=== PATIENT | male | born 1940 | race Caucasian/White ===

== ENCOUNTER 2016-07-27 18:42 | Emergency (ER) | payer BC, MEDICARE ==
--- NOTE | ~2016-07-27 | CT4 ---
[facility]. [facility] A Service of [facility] & [facility] RADIOLOGY TEXT RESULTS PATIENT: CIRILO SOMERS LOCATION: SED : 41 UNIT #: [id number] AGE: [address]: Brittany Segura APRN SEX: M ORDER DR: [id number] [address] [address] [id number] E MR#: [id number] Acc #: [id number] NAME: CIRILO SOMERS. : 1940 SEX: M STUDY DATE/TIME: 07/27/2016 19:18 UNIT: SED ROOM: STUDY DESCRIPTION: CT Abd and Pelv Wo Cont Attending Physician: Brittany Segura A.P.R.N. Ordering Physician: Brittany Segura A.P.R.N. Primary Care Physician: Leeroy Arzola M.D. MEDICAL IMAGING REPORT This report is preliminary unless electronic signature is present. EXAM CT abdomen and pelvis without contrast HISTORY Right-sided flank pain, onset 15 minutes prior to admission in ER COMPARISON CT chest 03/11/2016 FINDINGS Axial images performed through the abdomen and pelvis without contrast. Multiplanar reconstructed were images reviewed at a workstation. This CT exam was performed with one or more of the following radiation dose reduction techniques: automatic exposure control, adjustment of mA and/or kV according to patient size, and iterative reconstruction. FINDINGS There is a calcified granuloma left lower lobe with some adjacent atelectasis or scarring. Liver, spleen, gallbladder, pancreas and adrenal glands unremarkable. There is moderate to severe bilateral hydronephrosis with a 8 mm right UPJ stone and a 7 mm left UVJ stone contributing to bilateral obstruction. Probable hyperdense renal cortical cyst on the left. GI tract remarkable for colonic diverticulosis. Pelvis: Bladder unremarkable. Prostate demonstrates multiple radiation seed implants. Degenerative disc changes noted at L2-3, L5-S1 with multilevel spinal and foraminal stenosis at multiple lumbar levels. IMPRESSION 1. Bilateral hydronephrosis with a 8 mm right UPJ stone and a 7 mm left UVJ stone. [facility] A Service of [facility] RADIOLOGY TEXT RESULTS PATIENT: CIRILO SOMERS LOCATION: [facility] : 41 UNIT #: [id number] AGE: [address]: Brittany Segura CULINARY SPECIALIST SEX: M ORDER DR: 2. 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 Dictated by... Gus Crane M.D. THIS IS AN ELECTRONICALLY VERIFIED REPORT Gus Crane M.D. at 07/28/2016 6:37 PM TARA/salvatore TD: 07/27/2016 23:08 JOB #: [id number] MEDICAL IMAGING REPORT Page 1 of 1
[~2016-07-27 18:42] MED LIST: COREG PO; LIPITOR PO; LISINOPRIL PO; PLAVIX PO
[2016-07-27 18:48] LABS: BASOPHIL# 0.1 X10e3 (0-0.3); BASOPHIL% 0.8 % (0-2.5); EOSINOPHIL# 0.5 X10e3 (0-0.7); EOSINOPHIL% 5.4 % (0.0-7.0); HEMATOCRIT 43.7 % (38.0-50.0); HEMOGLOBIN 14.6 gm/dL (13.0-16.0); LYMPHOCYTE# 0.8 X10e3 (1.0-3.5); LYMPHOCYTE% 9.1 % (17.0-45.0); MEAN CELL VOLUME 90.9 FL (83-96); MEAN CORPUSCULAR HEMOGLOBIN 30.5 PG (28-34); MEAN CORPUSCULAR HGB CONC 33.5 g/dL (30-36); MEAN PLATELET VOLUME 8.8 FL (6.5-11.5); MONOCYTE# 0.9 X10e3 (0-1.0); MONOCYTE% 10.2 % (3.0-12.0); NEUTROPHIL# 6.5 X10e3 (1.5-7.1); NEUTROPHIL% 74.5 % (40-75); PLATELET COUNT 131 X10e3 (140-420); RED BLOOD COUNT 4.81 X10e (3.90-5.60); RED CELL DISTRIBUTION WIDTH 13.6 % (11.0-15.5); WHITE BLOOD COUNT 8.7 X10e3 (4.0-10.5)
[2016-07-27 18:51] LABS: DIFF IND NO
[2016-07-27 19:08] LABS: ALBUMIN SERUM 4.3 g/dL (3.5-5.0); BILIRUBIN, DIRECT 0.1 mg/dL (0.0-0.2); BILIRUBIN,INDIRECT 0.5 mg/dL (0.0-0.9); BILIRUBIN,TOTAL 0.6 mg/dL (0.2-2.0); BUN/CREATININE RATIO 26.15; CALCIUM SERUM 9.4 mg/dL (8.4-10.2); CREATININE SERUM 1.3 mg/dL (0.6-1.4); GLOM FILT RATE Estimated 53.4 mL/min (>60); PROTEIN TOTAL SERUM 7.6 g/dL (6.0-8.3)
[2016-07-27 19:17] LABS: URINE SOURCE CLEAN CATCH
[2016-07-27 19:19] LABS: URINE BILIRUBIN NEG (NEG); URINE BLOOD 3+ (NEG); URINE COLOR YELLOW; URINE GLUCOSE NEG (NORM); URINE KETONE NEG (NEG); URINE NITRATE NEG (NEG); URINE PH 5.5 (5-8); URINE PROTEIN TRACE (NEG); URINE SPECIFIC GRAVITY 1.015 (1.003-1.035); URINE UROBILINOGEN 0.2 MG/DL (NORM)
[2016-07-27 19:26] LABS: URINE APPEARANCE HAZY
[2016-07-27 19:27] LABS: MICRO INDICATED? YES; URINE LEUKOCYTE ESTERASE 1+ (NEG)
[2016-07-27 19:29] LABS: URINE BACTERIA NEG (NEG); URINE MUCUS PRESENT; URINE RBC INNUM /[HPF] (0-2); URINE SQUAMOUS EPITHELIAL CELL OCCAS /[HPF]; URINE TRANSITIONAL EPI CELLS FEW /[HPF]
== END 2016-07-27 20:03 | disposition home or self-care (01) ==
LOC: SED 18:42
PROVIDERS: Nurse Practitioner
DX: N13.2 Hydronephrosis with renal and ureteral calculous obstruction (principal); I10 Essential (primary) hypertension; Z86.73 Personal history of transient ischemic attack (TIA), and cerebral infarction without residual deficits; Z79.899 Other long term (current) drug therapy
CPT/HCPCS: 36415; 74176; 80048; 80076; 81003; 83690; 85025; 96374; 96375; 99284; J2270; J2405

== ENCOUNTER → 2016-08-21 | Outpatient (CLI) | payer BC, MEDICARE ==
[~2016-08-21] MED LIST changes: +FLOMAX0.4 M1
--- NOTE | ~2016-08-21 | CR7 ---
[facility] A Service of [facility] RADIOLOGY TEXT RESULTS PATIENT: CIRILO SOMERS LOCATION: [facility] : 41 UNIT #: [id number] AGE: [address]: Johnathan Wilson MD SEX: M ORDER DR: [id number] [place] [address] [id number] O MR#: [id number] Acc #: [id number] NAME: CIRILO SOMERS : 1940 SEX: M STUDY DATE/TIME: 08/21/2016 10:41 UNIT: [facility] ROOM: STUDY DESCRIPTION: CR Abdomen Single AP View Attending Physician: Johnathan Wilson M.D. Referring Physician: Johnathan Wilson M.D. Ordering Physician: Johnathan Wilson M.D. Primary Care Physician: Leeroy Arzola M.D. MEDICAL IMAGING REPORT This report is preliminary unless electronic signature is present. EXAM Abdominal radiograph. INDICATION Renal calculus. Stent placement 3 weeks ago. PROCEDURE 2 supine views of the abdomen. COMPARISON CT from 07/27/2016. FINDINGS Bilateral double-J stents in place. There is a small calculus in the proximal to mid ureter that measures approximately 3 mm. There are a few small radiodensities measuring 2-3 mm along the distal course of the right stent. These could represent calculi or phleboliths. There are other scattered phleboliths in the pelvis. No other visible radiodense urinary system calculus. IMPRESSION Bilateral ureteral stents in place. There is a 3 mm calculus along the proximal to mid ureter. Small 2-3 mm phleboliths along the distal course of the right ureter versus pelvic phleboliths. Dictated by... Gian Rivas M.D. THIS IS AN ELECTRONICALLY VERIFIED REPORT Gian Rivas M.D. at 08/24/2016 7:05 AM [facility] A Service of [facility] RADIOLOGY TEXT RESULTS PATIENT: CIRILO SOMERS LOCATION: [facility] : 41 UNIT #: [id number] AGE: [address]: Johnathan Wilson MD SEX: M ORDER DR: IDANIA/zander TD: 08/21/2016 16:55 JOB #: [id number] MEDICAL IMAGING REPORT Page 1 of 1
== END | disposition home or self-care (01) ==
LOC: SRAD 09:57
DX: N20.0 Calculus of kidney (principal); N20.1 Calculus of ureter; Z96.0 Presence of urogenital implants
CPT/HCPCS: 74000

== ENCOUNTER 2016-08-24 17:18 | Emergency (ER) | payer BC ==
[~2016-08-24 17:18] MED LIST changes: -FLOMAX0.4 M1
[2016-08-24] MEDS ORDERED: FLOMAX0.4 M1 (17:23)
[2016-08-24 17:53] LABS: URINE SOURCE CLEAN CATCH
[2016-08-24 17:55] LABS: URINE APPEARANCE SL CLOUDY; URINE BILIRUBIN NEG (NEG); URINE BLOOD 3+ (NEG); URINE COLOR DK YELLOW; URINE GLUCOSE NEG (NORM); URINE KETONE NEG (NEG); URINE LEUKOCYTE ESTERASE TRACE (NEG); URINE NITRATE NEG (NEG); URINE PH 5.5 (5-8); URINE PROTEIN 2+ (NEG); URINE UROBILINOGEN 0.2 MG/DL (NORM)
[2016-08-24 17:57] LABS: MICRO INDICATED? YES
[2016-08-24 18:11] LABS: CULTURE INDICATED? YES; URINE BACTERIA 1+ (NEG); URINE RBC 100-200 /[HPF] (0-2)
== END 2016-08-24 19:42 | disposition home or self-care (01) ==
LOC: SED 17:18
PROVIDERS: Nurse Practitioner Family
DX: R33.9 Retention of urine, unspecified (principal); R30.0 Dysuria; I10 Essential (primary) hypertension; Z79.899 Other long term (current) drug therapy
CPT/HCPCS: 51702; 81003; 87086; 99284

== ENCOUNTER 2016-08-26 14:17 | Emergency (ER) | payer BC ==
[~2016-08-26 14:17] MED LIST changes: +FLOMAX0.4 M1
[2016-08-26 15:49] LABS: URINE SOURCE CLEAN CATCH
[2016-08-26 15:52] LABS: URINE APPEARANCE CLEAR; URINE BILIRUBIN NEG (NEG); URINE BLOOD 3+ (NEG); URINE COLOR YELLOW; URINE GLUCOSE NEG (NORM); URINE KETONE NEG (NEG); URINE LEUKOCYTE ESTERASE NEG (NEG); URINE NITRATE NEG (NEG); URINE PH 5.5 (5-8); URINE PROTEIN NEG (NEG); URINE SPECIFIC GRAVITY 1.015 (1.003-1.035); URINE UROBILINOGEN 0.2 MG/DL (NORM)
[2016-08-26 15:53] LABS: MICRO INDICATED? YES
[2016-08-26 15:56] LABS: URINE BACTERIA NEG (NEG)
[2016-08-26 15:57] LABS: CULTURE INDICATED? YES; URINE AMORPHOUS SEDIMENT AMORP URATES; URINE SQUAMOUS EPITHELIAL CELL FEW /[HPF]
== END 2016-08-26 16:34 | disposition home or self-care (01) ==
LOC: SED 14:17
PROVIDERS: Emergency Medicine
DX: R33.9 Retention of urine, unspecified (principal); Z90.49 Acquired absence of other specified parts of digestive tract
CPT/HCPCS: 51702; 81003; 87086; 99284

== ENCOUNTER 2016-08-30 01:38 | Emergency (ER) | payer BC ==
[2016-08-30 02:10] LABS: URINE SOURCE CLEAN CATCH
[2016-08-30 02:12] LABS: URINE APPEARANCE CLEAR; URINE BILIRUBIN NEG (NEG); URINE BLOOD 3+ (NEG); URINE COLOR YELLOW; URINE GLUCOSE NEG (NORM); URINE KETONE NEG (NEG); URINE LEUKOCYTE ESTERASE TRACE (NEG); URINE NITRATE NEG (NEG); URINE PROTEIN NEG (NEG); URINE UROBILINOGEN 0.2 MG/DL (NORM)
[2016-08-30 02:13] LABS: MICRO INDICATED? YES
[2016-08-30 02:16] LABS: CULTURE INDICATED? NO; URINE BACTERIA NEG (NEG); URINE MUCUS PRESENT; URINE RBC 50-100 /[HPF] (0-2); URINE SQUAMOUS EPITHELIAL CELL FEW /[HPF]; URINE WBC 0-2 /[HPF] (0-5)
== END 2016-08-30 02:46 | disposition home or self-care (01) ==
LOC: SED 01:38
PROVIDERS: Emergency Medicine
DX: R33.9 Retention of urine, unspecified (principal); R03.0 Elevated blood-pressure reading, without diagnosis of hypertension; Z87.442 Personal history of urinary calculi
CPT/HCPCS: 51702; 81003; 99284

== ENCOUNTER 2016-09-13 11:57 | Emergency (ER) | payer BC, MEDICARE ==
--- NOTE | ~2016-09-13 | CR72 ---
[facility] A Service of [facility] RADIOLOGY TEXT RESULTS PATIENT: CIRILO SOMERS LOCATION: SED : 41 UNIT #: [id number] AGE: [address]: Wendi Lawrence MD SEX: M ORDER DR: [id number] [place] [address] [id number] E MR#: [id number] Acc #: [id number] NAME: CIRILO SOMERS : 1940 SEX: M STUDY DATE/TIME: 09/13/2016 12:56 UNIT: SED ROOM: STUDY DESCRIPTION: CR Chest Single View Portable Attending Physician: Wendi Lawrence M.D. Ordering Physician: oG Horton M.D. Primary Care Physician: Leeroy Arzola M.D. MEDICAL IMAGING REPORT This report is preliminary unless electronic signature is present. EXAM Chest, portable, 09/13/16, 1256 hours. CLINICAL HISTORY 76-year-old man with shortness of air today, chest pain and upper back pain in the middle of the chest. COMPARISON Chest CT, and chest x-ray, 03/11/2016. FINDINGS Single portable upright view of the chest demonstrates normal heart size. There is a tortuous aorta in patient with known mild aortic aneurysm from CT 03/11/16. Aortic contours appear stable. Lungs are clear and there are no effusions. IMPRESSION Normal heart size with tortuous aorta in patient with known ascending aortic aneurysm measuring 4.[address] 03/11/16. Aortic contours are felt stable when allowing for technique. The lungs are clear and there are no effusions. Dictated by... Ashtyn Rush M.D. THIS IS AN ELECTRONICALLY VERIFIED REPORT Ashtyn Rush M.D. at 09/14/2016 9:26 AM FADIA/daphne TD: 09/13/2016 17:13 [facility] A Service of [facility] RADIOLOGY TEXT RESULTS PATIENT: CIRILO SOMERS LOCATION: [facility] [place] : 41 UNIT #: [id number] AGE: [address]: Wendi Lawrence MD SEX: M ORDER DR: JOB #: [id number] MEDICAL IMAGING REPORT Page 1 of 1
--- NOTE | ~2016-09-13 | CT16 ---
[facility] A Service of [facility] & [facility] RADIOLOGY TEXT RESULTS PATIENT: CIRILO SOMERS LOCATION: SED : 41 UNIT #: [id number] AGE: [address]: Wendi Lawrence MD SEX: M ORDER DR: [id number] [place] [id number] E MR#: [id number] Acc #: [id number] NAME: CIRILO SOMERS. : 1940 SEX: M STUDY DATE/TIME: 09/13/2016 14:31 UNIT: SED ROOM: STUDY DESCRIPTION: CT Angio Chest for PE Attending Physician: Wendi Lawrence M.D. Ordering Physician: Wendi Lawrence M.D. Primary Care Physician: Leeroy Arzola M.D. MEDICAL IMAGING REPORT This report is preliminary unless electronic signature is present. EXAM CTA chest with contrast, PE protocol at 14:31 DATE 09/13/2016 HISTORY 76-year-old male, chest and upper back pain and shortness of breath since this morning. History of prostate cancer, previous transient ischemic attack, hypertension. COMPARISON CTA chest PE protocol 03/11/2016. AP portable chest 09/13/2016 at 12:56. PROCEDURE 2 mm axial images from the thoracic inlet through the upper abdomen after IV contrast administration. 3-D coronal MIP reformatted images were obtained. This CT exam was performed with one or more of the following radiation dose reduction techniques: Automatic exposure control, adjustment of mA and/or kV according to patient size, and iterative reconstruction. FINDINGS Subsegmental pulmonary embolism is demonstrated posteromedially within the right lower lobe (series 4, image 116, denoted by arrow). More chronic appearing weblike filling defect is present within a left lower lobe segmental artery, suggesting features of chronic pulmonary embolism. The bilateral upper lobes and right middle lobe appear relatively free of embolic disease. There is cystic bronchiectasis within the superior right lower lobe, which can also be seen on the 03/11/2016 examination. Peripheral ground-glass densities are present in this same location peripherally, favored to STS. [facility] A Service of [facility] & [facility] RADIOLOGY TEXT RESULTS PATIENT: CIR[facility] SOMERS [id number] UNIT #: [id number] AGE: [address]: HowardJuly SEX: M ORDER DR: represent pneumonitis. There is bronchial wall thickening and suspected partial mucous plugging within right lower lobe bronchi (series 5, image 108). Benign calcified granuloma is present in the posterior left lower lobe. Mild bronchiolar wall thickening within the left lower lobe. 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 There is borderline fusiform aneurysmal dilation of the mid ascending thoracic aorta, 4.1 cm, unchanged. There is aneurysmal dilation of the transverse and proximal descending thoracic aorta up to 3.8 cm, compared to 3.7 cm previously. Mild fusiform aneurysmal dilation in the mid descending thoracic aorta, 3.1 cm, unchanged. No aortic dissection. Normal heart size. No pericardial effusion or pleural effusion. A cyst is seen within the posterior left upper renal pole. Suspected bilateral renal parapelvic cysts versus mild bilateral hydronephrosis, similar in appearance to the 07/27/2016 examination. Incidental note is made of a 5 mm low-density lesion in the right hepatic lobe thought to most likely represent cyst based upon statistics, unchanged from 07/27/2016. Remainder of included upper abdominal organs are within normal limits. IMPRESSION 1. Subsegmental pulmonary embolism is seen within the posteromedial right lower lobe. What appears to be a more chronic or weblike embolism is demonstrated within a left lower lobe segmental branch. I personally discussed the findings with Dr. Lawrence in the ER prior to the time of this dictation today, 09/13/2016 at 3:17 p.m. 2. Bilateral lower lobe bronchial wall thickening and partial bronchiolar opacification. Correlate for small airways infectious-inflammatory change/bronchitis. 3. Mild peripheral ground-glass opacity in the right lower lobe, located peripheral to an area of cystic bronchiectasis. This may represent a focal area of pneumonitis. Based upon its location, it is thought unlikely to represent focal pulmonary infarct. 4. 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 There is no aortic dissection. 5. There is dilation of the renal pelves and calyces versus renal parapelvic cysts. This has a very similar appearance to the CT abdomen from 07/27/2016. If there is suspicion for hydronephrosis, this could be further evaluated with CT abdomen and pelvis without and with contrast, renal protocol with delayed 5-minute excretory phase imaging, to distinguish between true hydronephrosis versus STS. [facility] A Service of [facility] RADIOLOGY TEXT RESULTS PATIENT: CIRILO SOMERS [place] [facility] [place] 41 UNIT #: [id number] AGE: [address]: Wendi Lawrence MD SEX: M ORDER DR: presence of parapelvic cysts. 6. Benign granulomatous changes within the chest. Dictated by... Candy Mahoney M.D. THIS IS AN ELECTRONICALLY VERIFIED REPORT Candy Mahoney M.D. at 09/14/2016 10:05 AM TAYLOR/nitin TD: 09/13/2016 21:02 JOB #: [id number] MEDICAL IMAGING REPORT Page 1 of 1
--- NOTE | ~2016-09-13 | EKG ---
PATIENT: CIRILO SOMERS UNIT #: [id number] Ventricular Rate: 104 BPM Atrial Rate: 104 BPM P-R Interval: 182 ms QRS Duration: 130 ms Q-T Interval: 374 ms QTC Calculation(Bezet): 491 ms P [place]: 26 degrees Calculated R [place]: 44 degrees Calculated T [place]: 36 degrees Diagnosis Line: Sinus tachycardia with Premature atrial complexes Diagnosis Line: Right bundle branch block Diagnosis Line: Left ventricular hypertrophy with QRS widening Diagnosis Line: Abnormal ECG Diagnosis Line: When compared with ECG of 11-MAR-2016 16:11, Diagnosis Line: No significant change was found Diagnosis Line: Confirmed by JOSE M CALVO MD ([id number]) on Diagnosis Line: 09/14/2016 7:12:05 PM INTERPRETING MD: LUBNA COLVIN
[2016-09-13 12:28] LABS: POC - CKMB <1.0 ng/mL (0.0-7.9); POC - TROPONIN <0.05 ng/mL (<=0.05)
[2016-09-13 12:32] LABS: BASOPHIL% 0.2 % (0-2.5); EOSINOPHIL% 0.2 % (0.0-7.0); HEMOGLOBIN 13.3 gm/dL (13.0-16.0); LYMPHOCYTE# 0.2 X10e3 (1.0-3.5); LYMPHOCYTE% 1.2 % (17.0-45.0); MEAN CELL VOLUME 88.1 FL (83-96); MEAN CORPUSCULAR HEMOGLOBIN 29.4 PG (28-34); MEAN CORPUSCULAR HGB CONC 33.3 g/dL (30-36); MEAN PLATELET VOLUME 8.6 FL (6.5-11.5); MONOCYTE# 0.9 X10e3 (0-1.0); NEUTROPHIL# 13.3 X10e3 (1.5-7.1); NEUTROPHIL% 92.4 % (40-75); PLATELET COUNT 156 X10e3 (140-420); RED BLOOD COUNT 4.55 X10e (3.90-5.60); RED CELL DISTRIBUTION WIDTH 14.3 % (11.0-15.5); WHITE BLOOD COUNT 14.4 X10e3 (4.0-10.5)
[2016-09-13 13:01] LABS: DIFF IND NO
[2016-09-13 13:18] LABS: BILIRUBIN, DIRECT 0.3 mg/dL (0.0-0.2); BILIRUBIN,INDIRECT 1.6 mg/dL (0.0-0.9); BILIRUBIN,TOTAL 1.9 mg/dL (0.2-2.0); POTASSIUM 3.4 mmol/L (3.5-5.1)
[2016-09-13 13:19] LABS: BUN/CREATININE RATIO 29.09; CALCIUM SERUM 8.8 mg/dL (8.4-10.2); CREATININE SERUM 1.1 mg/dL (0.6-1.4); GLOM FILT RATE Estimated 65.3 mL/min (>60)
[2016-09-13 14:07] LABS: POC - CKMB <1.0 ng/mL (0.0-7.9); POC - TROPONIN <0.05 ng/mL (<=0.05)
[2016-09-13 15:50] LABS: INR 1.1; PROTHROMBIN TIME (PATIENT) 12.8 SECONDS (9.5-12.4)
[2016-09-13 15:57] LABS: PARTIAL THROMBOPLASTIN TIME 23.5 SECONDS (25.6-38.1)
== END 2016-09-13 19:41 ==
LOC: SED 11:57
PROVIDERS: Emergency Medicine; Student in an Organized Health Care Education/Training Program
DX: I26.99 Other pulmonary embolism without acute cor pulmonale (principal); J47.9 Bronchiectasis, uncomplicated; Z90.49 Acquired absence of other specified parts of digestive tract; Z98.890 Other specified postprocedural states
CPT/HCPCS: 71010; 71275; 80048; 80076; 82553; 84484; 85025; 85610; 85730; 93005; 96372; 99284; 99291; J1650; Q9967